=== PATIENT | female | born 1945 | race Caucasian/White ===

== ENCOUNTER 2016-09-25 19:46 | Emergency (ER) | payer MEDICARE, OTHER ==
[2016-09-25 21:26] LABS: Hematocrit 39 % (35-47); Hemoglobin 12.9 g/dl (12.0-16.0); Mean Corpuscular HGB Conc 33 g/dl (31-36); Mean Corpuscular Hemoglobin 29 pg (27-31); Mean Corpuscular Volume 87 fL (80-97); Mean Platelet Volume 9 um3 (7.4-10.4); Red Blood Count 4.51 10^6/ul (4.0-5.4); Red Cell Distribution Width 13 % (10.5-15); White Blood Count 6.8 10^3/ul (3.5-10.8)
[2016-09-25 21:43] LABS: Albumin 3.8 g/dL (3.2-5.2); Calcium 8.8 mg/dL (8.6-10.3); EGFR African American 106.4 (>60); EGFR Non-African American 82.7 (>60); Globulin 2.5 g/dL (2-4); Potassium 3.2 mmol/L (3.5-5.0); Total Bilirubin 0.6 mg/dL (0.2-1.0); Total Protein 6.3 g/dL (6.4-8.9)
[2016-09-25] MEDS ORDERED: Potassium Chlor TAB* 20 MEQ TAB.ER PO ONE (21:55)
--- NOTE | 2016-09-25 21:59 | ED ---
Nagi Quintero Alok, scribed for Starr Watson MD on 09/25/16 at 2137 . Palpitations / Dysrhythmia - HPI Summary HPI Summary: 71F presents to the ED with cardiac dysrhythmia intermittently for the past 5 days. Pt states her palpitations have worsened since 1800 this evening and are now constant. Pt notes slight nausea. Pt denies CP or SOB. Pt denies recent cough. Pt drinks ETOH daily. - History of Current Complaint Chief Complaint: EDDysrhythmPalp Time Seen by Provider: 09/25/16 20:19 Hx Obtained From: Patient Onset/Duration: Lasting Days, Worse Since - 1800 this evening Timing: Constant - since this evening Severity Initially: Moderate Severity Currently: Moderate Character: Irregular Aggravating: Nothing Alleviating: Nothing Associated Signs & Symptoms: Nausea - Allergy/Home Medications Allergies/Adverse Reactions: Allergies Allergy/AdvReac Type Severity Reaction Status Date / Time Bee Pollen Allergy See Comment Verified 09/25/16 19:53 bee Allergy See Comment Uncoded 09/25/16 19:53 PMH/Surg Hx/FS Hx/Imm Hx Endocrine/Hematology History: Denies: Hx Diabetes Cardiovascular History: Denies: Hx Hypertension, Hx Pacemaker/ICD Musculoskeletal History: Reports: Hx Bursitis - RESOLVED RIGHT HIP Sensory History: Reports: Hx Contacts or Glasses - GLASSES Denies: Hx Hearing Aid Opthamlomology History: Reports: Hx Contacts or Glasses - GLASSES Neurological History: Reports: Other Neuro Impairments/Disorders - HX OF VIRAL MENNIGITIS- 10 YEARS AGO Psychiatric History: Denies: Hx Panic Disorder - Cancer History Hx Chemotherapy: No Hx Radiation Therapy: No - Surgical History Surgery Procedure, Year, and Place: Gallbladder,Appendectomy, tubal, repair left wrist fx Hx Anesthesia Reactions: Yes - NAUSEA WITH GENERAL Infectious Disease History: No Infectious Disease History: Denies: Traveled Outside the [place] in Last 30 Days - Family History Known Family History: Negative: Cardiac Disease - Social History Occupation: Retired Lives: With Family Alcohol Use: Daily Alcohol Amount: 1 glass wine Substance Use Type: Reports: None Smoking Status (MU): Never Smoked Tobacco Review of Systems Positive: Palpitations. Negative: Chest Pain Negative: Shortness Of Breath, Cough Positive: Nausea All Other Systems Reviewed And Are Negative: Yes Physical Exam Triage Information Reviewed: Yes Vital Signs On Initial Exam: Initial Vitals Temp Pulse Resp Pulse Ox 98.0 F 63 16 99 09/25/16 19:46 09/25/16 19:46 09/25/16 19:46 09/25/16 19:46 Vital Signs Reviewed: Yes Appearance: Positive: Well-Appearing, No Pain Distress Skin: Positive: Warm, Skin Color Reflects Adequate Perfusion, Dry Eyes: Positive: EOMI, DENILSON ENT: Positive: Pharynx normal, TMs normal Neck: Positive: Supple, Nontender Respiratory/Lung Sounds: Positive: Clear to Auscultation, Breath Sounds Present. Negative: Rales, Rhonchi, Wheezes Cardiovascular: Positive: RRR, Other - no gallop. Negative: Murmur, Rub Abdomen Description: Positive: Nontender, Soft, Other: - no rebound. Negative: Distended, Guarding Bowel Sounds: Positive: Present Musculoskeletal: Positive: Strength/ROM Intact. Negative: Edema Left, Edema Right Neurological: Positive: Sensory/Motor Intact, Alert, Oriented to Person Place, Time, CN Intact II-III Psychiatric: Positive: Affect/Mood Appropriate - Linda Coma Scale Coma Scale Total: 15 Diagnostics - Vital Signs Vital Signs Temp Pulse Resp BP Pulse Ox 09/25/16 20:38 97.8 F 60 18 116/70 98 09/25/16 20:34 61 09/25/16 20:30 59 15 116/70 95 09/25/16 20:20 16 09/25/16 20:19 115/73 09/25/16 19:46 98.0 F 63 16 99 - Laboratory Lab Results: Lab Results 09/25/16 09/25/16 09/25/16 Range/Units 21:20 21:20 21:20 WBC 6.8 (3.5-10.8) 10^3/ul RBC 4.51 (4.0-5.4) 10^6/ul Hgb 12.9 (12.0-16.0) g/dl Hct 39 (35-47) % MCV 87 (80-97) fL MCH 29 (27-31) pg MCHC 33 (31-36) g/dl RDW 13 (10.5-15) % Plt Count 142 L (150-450) 10^3/ul MPV 9 (7.4-10.4) um3 Neut % (Auto) 56.1 (38-83) % Lymph % (Auto) 36.0 (25-47) % [place] % (Auto) 5.7 (1-9) % Eos % (Auto) 1.2 (0-6) % Baso % (Auto) 1.0 (0-2) % Absolute Neuts (auto) 3.8 (1.5-7.7) 10^3/ul Absolute Lymphs (auto) 2.5 (1.0-4.8) 10^3/ul Absolute Monos (auto) 0.4 (0-0.8) 10^3/ul Absolute Eos (auto) 0.1 (0-0.6) 10^3/ul Absolute Basos (auto) 0.1 (0-0.2) 10^3/ul Absolute Nucleated RBC 0 10^3/ul Nucleated RBC % 0.1 Sodium 138 (133-145) mmol/L Potassium 3.2 L (3.5-5.0) mmol/L Chloride 104 (101-111) mmol/L Carbon Dioxide 27 (22-32) mmol/L Anion Gap 7 (2-11) mmol/L BUN 21 (6-24) mg/dL Creatinine 0.70 (0.51-0.95) mg/dL Est GFR ( Amer) 106.4 (>60) Est GFR (Non-Af Amer) 82.7 (>60) BUN/Creatinine Ratio 30.0 H (8-20) Glucose 99 (70-100) mg/dL Lactic Acid 1.2 (0.5-2.0) mmol/L Calcium 8.8 (8.6-10.3) mg/dL Magnesium 2.0 (1.9-2.7) mg/dL Total Bilirubin 0.60 (0.2-1.0) mg/dL AST 18 (13-39) U/L ALT 13 (7-52) U/L Alkaline Phosphatase 50 (34-104) U/L Troponin I 0.00 (<0.04) ng/mL Total Protein 6.3 L (6.4-8.9) g/dL Albumin 3.8 (3.2-5.2) g/dL Globulin 2.5 (2-4) g/dL Albumin/Globulin Ratio 1.5 (1-3) Result Diagrams: 09/25/16 21:20 09/25/16 21:20 Lab Statement: Any lab studies that have been ordered have been reviewed, and results considered in the medical decision making process. 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 k is 3.2 repleted with 40meq k here plus 40 meq to be taken at home, mag is normal. Pt will eat a potassium rich diet at home. It was offered to rule pt out for mi but pt is very reliable and is clear that her symptoms are only palpitations and she declined the offer - Diagnoses Provider Diagnoses: Hypokalemia, Palpitations Discharge - Discharge Plan Condition: Stable Disposition: HOME Patient Education Materials: Palpitations (ED), Hypokalemia (ED) Referrals: Barber Langford MD [Primary Care Provider] - The documentation as recorded by the Nagi jolley Alok accurately reflects the service I personally performed and the decisions made by me, Starr Watson MD.
[2016-09-25 22:24] VITALS: BP 112/71
== END 2016-09-25 22:22 | disposition home or self-care (01) ==
LOC: ED 19:46
DX: R00.2 Palpitations (principal); E87.6 Hypokalemia; R11.0 Nausea; R00.1 Bradycardia, unspecified; Z91.030 Bee allergy status; Z90.49 Acquired absence of other specified parts of digestive tract
CPT/HCPCS: 36415; 80053; 83605; 83735; 84484; 85025; 93005; 99283; A9270-GY

== ENCOUNTER 2016-10-22 13:51 | Emergency (ER) | payer MEDICARE, OTHER ==
[2016-10-22 15:37] LABS: Hematocrit 40 % (35-47); Hemoglobin 13.3 g/dl (12.0-16.0); Mean Corpuscular HGB Conc 33 g/dl (31-36); Mean Corpuscular Hemoglobin 29 pg (27-31); Mean Corpuscular Volume 88 fL (80-97); Mean Platelet Volume 9 um3 (7.4-10.4); Red Blood Count 4.54 10^6/ul (4.0-5.4); Red Cell Distribution Width 14 % (10.5-15); White Blood Count 6.6 10^3/ul (3.5-10.8)
[2016-10-22 15:50] LABS: Albumin 3.9 g/dL (3.2-5.2); BUN/Creatinine Ratio 27.5 (8-20); Calcium 9.1 mg/dL (8.6-10.3); EGFR African American 91.2 (>60); EGFR Non-African American 70.9 (>60); Magnesium 2.2 mg/dL (1.9-2.7); Potassium 4.1 mmol/L (3.5-5.0); Total Bilirubin 0.7 mg/dL (0.2-1.0); Total Protein 6.9 g/dL (6.4-8.9)
[2016-10-22 16:16] LABS: TSH (Thyroid Stimulating Horm) 2.97 mcIU/mL (0.34-5.60)
[2016-10-22 17:05] VITALS: BP 112/70
--- NOTE | 2016-10-22 22:09 | ED ---
Kusum Quintero SooYoung, scribed for Duke López MD on 10/22/16 at 1427 . Palpitations / Dysrhythmia - HPI Summary HPI Summary: A 71 y/o F presents to ED with c/o palpitations onset two days ago. 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 The intermittent episodes might go on for approx 2 hours each day. Associated sx: nausea, chest pressure, mild dizziness, just feeling "not right". She did hot yoga today and did not notice any problems during exercise. - History of Current Complaint Chief Complaint: EDDysrhythmPalp Time Seen by Provider: 10/22/16 14:18 Hx Obtained From: Patient Onset/Duration: Lasting Days, Still Present Severity Initially: Moderate Severity Currently: Moderate Character: Fast, Skipped Beats Associated Signs & Symptoms: Dizzy, Chest Pain - "pressure", Nausea - Allergy/Home Medications Allergies/Adverse Reactions: Allergies Allergy/AdvReac Type Severity Reaction Status Date / Time Bee Pollen Allergy See Comment Verified 09/25/16 19:53 bee Allergy See Comment Uncoded 09/25/16 19:53 PMH/Surg Hx/FS Hx/Imm Hx Previously Healthy: No Endocrine/Hematology History: Denies: Hx Diabetes Cardiovascular History: Denies: Hx Hypertension, Hx Pacemaker/ICD Musculoskeletal History: Reports: Hx Bursitis - RESOLVED RIGHT HIP Sensory History: Reports: Hx Contacts or Glasses - GLASSES Denies: Hx Hearing Aid Opthamlomology History: Reports: Hx Contacts or Glasses - GLASSES Neurological History: Reports: Other Neuro Impairments/Disorders - HX OF VIRAL MENNIGITIS- 10 YEARS AGO Psychiatric History: Denies: Hx Panic Disorder - Cancer History Hx Chemotherapy: No Hx Radiation Therapy: No - Surgical History Surgery Procedure, Year, and Place: Gallbladder,Appendectomy, tubal, repair left wrist fx Hx Anesthesia Reactions: Yes - NAUSEA WITH GENERAL Infectious Disease History: No Infectious Disease History: Denies: Traveled Outside the [place] in Last 30 Days - Family History Known Family History: Positive: Other - pos: anasthesia reaction Negative: Cardiac Disease - Social History Occupation: Retired Lives: With Family Alcohol Use: Daily Alcohol Amount: 1 glass wine Hx Substance Use: No Substance Use Type: Reports: None Hx Tobacco Use: No Smoking Status (MU): Never Smoked Tobacco Review of Systems Positive: Other - pos: "not feeling right" Positive: Palpitations, Chest Pain - "pressure" Positive: Nausea Neurological: Other - pos: mild dizziness All Other Systems Reviewed And Are Negative: Yes Physical Exam Triage Information Reviewed: Yes Vital Signs On Initial Exam: Initial Vitals Temp Pulse Resp BP Pulse Ox 97.6 F 62 17 121/93 98 10/22/16 13:52 10/22/16 13:52 10/22/16 13:52 10/22/16 13:52 10/22/16 13:52 Vital Signs Reviewed: Yes Appearance: Positive: Well-Appearing, No Pain Distress Skin: Positive: Warm, Skin Color Reflects Adequate Perfusion, Dry Head/Face: Positive: Normal Head/Face Inspection Eyes: Positive: Normal ENT: Positive: Normal ENT inspection Neck: Positive: Supple, Nontender Respiratory/Lung Sounds: Positive: Clear to Auscultation, Breath Sounds Present Cardiovascular: Positive: RRR Abdomen Description: Positive: Nontender, Soft Bowel Sounds: Positive: Present Musculoskeletal: Positive: Normal Neurological: Positive: Normal Psychiatric: Positive: Normal, Affect/Mood Appropriate Diagnostics - Vital Signs Vital Signs Temp Pulse Resp BP Pulse Ox 10/22/16 13:52 97.6 F 62 17 121/93 98 - Laboratory Lab Results: Lab Results 10/22/16 10/22/16 10/22/16 Range/Units 15:19 15:19 15:19 WBC 6.6 (3.5-10.8) 10^3/ul RBC 4.54 (4.0-5.4) 10^6/ul Hgb 13.3 (12.0-16.0) g/dl Hct 40 (35-47) % MCV 88 (80-97) fL MCH 29 (27-31) pg MCHC 33 (31-36) g/dl RDW 14 (10.5-15) % Plt Count 126 L (150-450) 10^3/ul MPV 9 (7.4-10.4) um3 Neut % (Auto) 62.0 (38-83) % Lymph % (Auto) 30.2 (25-47) % [place] % (Auto) 6.1 (1-9) % Eos % (Auto) 1.0 (0-6) % Baso % (Auto) 0.7 (0-2) % Absolute Neuts (auto) 4.1 (1.5-7.7) 10^3/ul Absolute Lymphs (auto) 2.0 (1.0-4.8) 10^3/ul Absolute Monos (auto) 0.4 (0-0.8) 10^3/ul Absolute Eos (auto) 0.1 (0-0.6) 10^3/ul Absolute Basos (auto) 0 (0-0.2) 10^3/ul Absolute Nucleated RBC 0 10^3/ul Nucleated RBC % 0 Sodium 137 (133-145) mmol/L Potassium 4.1 (3.5-5.0) mmol/L Chloride 104 (101-111) mmol/L Carbon Dioxide 27 (22-32) mmol/L Anion Gap 6 (2-11) mmol/L BUN 22 (6-24) mg/dL Creatinine 0.80 (0.51-0.95) mg/dL Est GFR ( Amer) 91.2 (>60) Est GFR (Non-Af Amer) 70.9 (>60) BUN/Creatinine Ratio 27.5 H (8-20) Glucose 80 (70-100) mg/dL Lactic Acid 0.7 (0.5-2.0) mmol/L Calcium 9.1 (8.6-10.3) mg/dL Magnesium 2.2 (1.9-2.7) mg/dL Total Bilirubin 0.70 (0.2-1.0) mg/dL AST 27 (13-39) U/L ALT 24 (7-52) U/L Alkaline Phosphatase 60 (34-104) U/L Troponin I 0.00 (<0.04) ng/mL Total Protein 6.9 (6.4-8.9) g/dL Albumin 3.9 (3.2-5.2) g/dL Globulin 3.0 (2-4) g/dL Albumin/Globulin Ratio 1.3 (1-3) TSH 2.97 (0.34-5.60) mcIU/mL Result Diagrams: 10/22/16 15:19 10/22/16 15:19 Lab Statement: Any lab studies that have been ordered have been reviewed, and results considered in the medical decision making process. - EKG 1 EKG Rhythm: Sinus Bradycardia Re-Evaluation - Re-Evaluation 1 Re-Evaluation Time: 16:30 Change: Unchanged Comment: Discussing results with pt. Pt notes still feeling palpitations. Course/Dx - Course Course Of Treatment: Ms. Ricks presented C/O frequent palpations today and feeling lightheaded once during them. She feels fine here and was watched on the monitor with infrequent PAC's. Her W/U was negative. She will need cardiology F/U. - Diagnoses Provider Diagnoses: Palpitations - Physician Notifications Discussed Care Of Patient With: Thanh Torres - cardio Time Discussed With Above Provider: 16:50 Instructed by Provider To: Have Pt Call For Appt. Discharge - Discharge Plan Condition: Stable Disposition: HOME Patient Education Materials: Palpitations (ED) Referrals: Barber Langford MD [Primary Care Provider] - 1 Week Thanh Torres MD [Medical Doctor] - 1 Week Additional Instructions: Follow up with your primary care provider as well as Dr. Torres, cardiology, within the week. Please return to the ED if you experience new or worsening symptoms. The documentation as recorded by the Kusum jolley SooYoung accurately reflects the service I personally performed and the decisions made by me, Duke López MD.
== END 2016-10-22 17:04 | disposition home or self-care (01) ==
LOC: ED 13:51
DX: R00.2 Palpitations (principal)
CPT/HCPCS: 36415; 80053; 83605; 83735; 84443; 84484; 85025; 93005; 99282

== ENCOUNTER 2017-12-19 13:29 | Observation (INO) | payer MEDICARE, OTHER ==
[2017-12-19] MEDS ORDERED: NS 0.9% 1000 ML* 1,000 ML IV SCH (14:00)
--- NOTE | 2017-12-19 14:09 | RAD ---
Indication: New onset confusion since 1120 hours. Comparison: No relevant prior exams available on the [facility] PACS for comparison. Technique: Noncontrast CT vertex of skull through foramen magnum. Report: Mild prominence of the cerebral sulci and cerebellar fissures reflecting involutional change. Unremarkable ventricles and basal cisterns. Negative for berman matter white matter obscuration, intra or extra-axial hemorrhage, or mass effect. Unremarkable orbital contents. No suspicious abnormality of the calvarium or skull base evident. Clear partially visualized paranasal sinuses and mastoid air spaces. Unremarkable scalp. IMPRESSION: #. No acute intracranial process evident. #. Mild involutional change. #. Results discussed with Dr. Mata 12/19/2017 2:04 PM EDT
[2017-12-19 14:14] LABS: Urine Appearance Clear; Urine Blood 2+ (Negative); Urine Color Straw; Urine Ketones Negative (Negative); Urine Protein Negative (Negative); Urine Red Blood Cell Trace(0-2/hpf) (Absent); Urine Specific Gravity 1.008 (1.010-1.030); Urine Urobilinogen Negative (Negative); Urine White Blood Cell Trace(0-5/hpf) (Absent)
[2017-12-19 14:18] LABS: ABS Basophils 0.1 10^3/ul (0-0.2); ABS Eosinophils 0 10^3/ul (0-0.6); ABS Lymphocytes 1.8 10^3/ul (1.0-4.8); ABS Monocytes 0.4 10^3/ul (0-0.8); ABS Neutrophils 5.2 10^3/ul (1.5-7.7); ABS Nucleated RBC 0 10^3/ul; Eosinophil % 0.6 % (0-6); Hematocrit 43 % (35-47); Lymphocyte % 23.6 % (25-47); Mean Corpuscular HGB Conc 35 g/dl (31-36); Mean Corpuscular Hemoglobin 30 pg (27-31); Mean Corpuscular Volume 87 fL (80-97); Mean Platelet Volume 8.5 um3 (7.4-10.4); Nucleated Red Blood Cells % 0.1; Platelet Count 184 10^3/ul (150-450); Red Blood Count 4.94 10^6/ul (4.00-5.40); Red Cell Distribution Width 14 % (10.5-15); White Blood Count 7.5 10^3/ul (3.5-10.8)
--- NOTE | 2017-12-19 14:31 | ED ---
Neurological HPI - HPI Summary HPI Summary: LEVEL 5 CAVEAT: Unable to obtain complete HPI due to AMS The pt is a 72 y/o female with a PMHX of A fib [facility] [place] [facility] [place]/o sudden onset confusion since 11:30 today. The pt attended her 1.5 hour Fredi yoga (conducted under high temperatures ) at 09:00 today morning. As per her , the pt looked fine before that. She could drive herself to and from the class. The sx started after the class. He reports loss of memory and confusion. For example, the pt could not remember the date , age and recent actions such as opening a package that was delivered yesterday to her. She has been taking the yoga class for 10 years without any challenges. - History of Current Complaint Chief Complaint: EDAltMentalStatus Stated Complaint: CONFUSION Time Seen by Provider: 12/19/17 13:38 Hx Obtained From: Patient, Family/Front End Developer - Hx From Patient Unobtainable Due To: Altered Mental Status Onset/Duration: Sudden Onset - 11:30 today, Still Present Number of Seizures: 0 Pain Intensity: 0 Pain Scale Used: 0-10 Numeric Character: Confusion, Other: - Memory loss Number of Episodes: 0 - Allergy/Home Medications Allergies/Adverse Reactions: Allergies Allergy/AdvReac Type Severity Reaction Status Date / Time bee venom protein (honey bee) Allergy Anaphylatic Verified 12/19/17 14:55 Shock Home Medications: Home Medications NK [No Home Medications Reported] 12/19/17 [History Confirmed 12/19/17] PMH/Surg Hx/FS Hx/Imm Hx Previously Healthy: No Endocrine/Hematology History: Denies: Hx Diabetes Cardiovascular History: Reports: Hx Atrial Fibrillation Denies: Hx Hypertension, Hx Pacemaker/ICD Musculoskeletal History: Reports: Hx Bursitis - RESOLVED RIGHT HIP Sensory History: Reports: Hx Contacts or Glasses - GLASSES Denies: Hx Hearing Aid Opthamlomology History: Reports: Hx Contacts or Glasses - GLASSES EENT History: Denies: Hx Deafness Neurological History: Reports: Other Neuro Impairments/Disorders - HX OF VIRAL MENNIGITIS- 10 YEARS AGO Psychiatric History: Denies: Hx Panic Disorder - Cancer History Cancer Type, Location and Year: None reported Hx Chemotherapy: No Hx Radiation Therapy: No - Surgical History Surgery Procedure, Year, and Place: Gallbladder,Appendectomy, tubal, repair left wrist fx Hx Anesthesia Reactions: Yes - NAUSEA WITH GENERAL Infectious Disease History: No Infectious Disease History: Denies: Traveled Outside the [place] in Last 30 Days - Family History Known Family History: Positive: Other - pos: anasthesia reaction Negative: Cardiac Disease - Social History Occupation: Retired Lives: With Family Alcohol Use: Daily Alcohol Amount: 1 glass wine Hx Substance Use: No Substance Use Type: Reports: None Hx Tobacco Use: No Smoking Status (MU): Never Smoked Tobacco - Additional Comments History Additional Comments: LEVEL 5 CAVEAT: Unable to obtain complete PMH due to AMS Review of Systems - ROS Summary Review of Systems Summary: LEVEL 5 CAVEAT: Unable to obtain complete ROS due to AMS Constitutional: Other - Positive: confusion Negative: Fever Neurological: Other - Positive: memory loss All Other Systems Reviewed And Are Negative: Yes Physical Exam - Summary Physical Exam Summary: Appearance: Well appearing, no pain distress Skin: warm, dry, reflects adequate perfusion Head/face: normal Eyes: EOMI, DENILSON ENT: normal Neck: supple, non-tender Respiratory: CTA, breath sounds present Cardiovascular: RRR, pulses symmetrical Abdomen: non-tender, soft Bowel: present Musculoskeletal: normal, strength/ROM intact Neuro: normal, sensory motor intact, confused GCS:15 NIH scale: 1 Triage Information Reviewed: Yes Vital Signs On Initial Exam: Initial Vitals Temp Pulse Resp BP Pulse Ox 97.2 F 75 18 142/88 98 12/19/17 13:32 12/19/17 13:32 12/19/17 13:32 12/19/17 13:32 12/19/17 13:32 Vital Signs Reviewed: Yes Diagnostics - Vital Signs Vital Signs Temp Pulse Resp BP Pulse Ox 12/19/17 14:19 66 21 146/101 99 12/19/17 14:02 63 10 97 12/19/17 13:42 68 20 153/97 98 12/19/17 13:32 97.2 F 75 18 142/88 98 - Laboratory Lab Results: Lab Results 12/19/17 12/19/17 Range/Units 14:02 14:03 WBC 7.5 (3.5-10.8) 10^3/ul RBC 4.94 (4.00-5.40) 10^6/ul Hgb 15.0 (12.0-16.0) g/dl Hct 43 (35-47) % MCV 87 (80-97) fL MCH 30 (27-31) pg MCHC 35 (31-36) g/dl RDW 14 (10.5-15) % Plt Count 184 (150-450) 10^3/ul MPV 8.5 (7.4-10.4) um3 Neut % (Auto) 69.5 (38-83) % Lymph % (Auto) 23.6 L (25-47) % [place] % (Auto) 5.6 (0-7) % Eos % (Auto) 0.6 (0-6) % Baso % (Auto) 0.7 (0-2) % Absolute Neuts (auto) 5.2 (1.5-7.7) 10^3/ul Absolute Lymphs (auto) 1.8 (1.0-4.8) 10^3/ul Absolute Monos (auto) 0.4 (0-0.8) 10^3/ul Absolute Eos (auto) 0 (0-0.6) 10^3/ul Absolute Basos (auto) 0.1 (0-0.2) 10^3/ul Absolute Nucleated RBC 0 10^3/ul Nucleated RBC % 0.1 Urine Color Straw Urine Appearance Clear Urine pH 5.0 (5-9) Ur Specific [place] 1.008 L (1.010-1.030) Urine Protein Negative (Negative) Urine Ketones Negative (Negative) Urine Blood 2+ A (Negative) Urine Nitrate Negative (Negative) Urine Bilirubin Negative (Negative) Urine Urobilinogen Negative (Negative) Ur Leukocyte Esterase Negative (Negative) Urine WBC (Auto) Trace(0-5/hpf) (Absent) Urine RBC (Auto) Trace(0-2/hpf) (Absent) Urine Bacteria Absent (Absent) Urine Glucose Negative (Negative) Result Diagrams: 12/19/17 14:03 12/19/17 14:03 Lab Statement: Any lab studies that have been ordered have been reviewed, and results considered in the medical decision making process. - Radiology Brain MRI Radiology Interpretation Completed By: Radiologist - IMPRESSION: #. No evidence for acute or subacute ischemia or intracranial hemorrhage. #. No acute intracranial process evident. #. Tiny focus of hemosiderin deposition at the LEFT frontal lobe white matter which may reflect a cavernous angioma or punctate remote prior hemorrhage site. The ED physician reviewed this radiology report. - CT Brain CT CT Interpretation Completed By: Radiologist - IMPRESSION: #. No acute intracranial process evident. #. Mild involutional change. The ED physician reviewed this radiology report. 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: Both Correctly Best Gaze (Only Horizontal Eye Movement): Normal Visual Field Testing: No Visual Loss Facial Paresis-Pt to Smile & Close Eyes or Grimace Symmetry: Normal/Symmetrical Motor Function - Right Arm: No Drift-Holds 10 Seconds Motor Function - Left Arm: No Drift-Holds 10 Seconds Motor Function - Right Leg: No Drift-Holds 10 Seconds Motor Function - Left Leg: No Drift-Holds 10 Seconds Limb Ataxia-Must be out of Proportion to Weakness Present: Absent Sensory (Use Pinprick to Test Arms/Legs/Trunk/Face): Normal Best Language (Describe Picture, Name Items): No Aphasia Dysarthria (Read Several Words): Normal Extinction and Inattention: No Abnormality Total Score: 1 Course/Dx - Course Course Of Treatment: A 72 year-old F presents to the ED with a CC of sudden onset confusion since 11:30 today. The pt attended her 1.5 hour Fredi yoga ( conducted under high temperatures) at 09:00 today morning. As per her , the pt looked fine before that. She could drive herself to and from the class. The sx started after the class. He reports loss of memory and confusion. For example, the pt could not remember the date, age and recent actions such as opening a package that was delivered yesterday to her. A physical exam revealed confusion. A brain CT reveals mild involutional change but is negative for any acute intracranial processes. An EKG is unremarkable.A brain MRI reveals a tiny focus of hemosiderin deposition at the LEFT frontal lobe white matter In the ED course, the pt was given N.s 0.9% 1000mL IV, Acetaminophen 650mg PO, and Oxygen therapy which improved the symptoms. I discussed the care of the pt with Dr. Berny Norwood MD (neurologist) who agreed to see the pt in the ED. I also consulted Dr. Coe from the [facility]. He recommended doing an MRI and EEG. At 15:30, Dr. Sakina Love (Hospitalist) recommended waiting for the MRI results before considering admission. Dr. Love agreed to admit the pt. The patient will be admitted with a final Dx of TIA, and TGA. She is agreeable with this plan. Allergies noted. - Differential Dx Differential Diagnoses Neuro: Positive: Cerebrovascular Accident, Hemorrhage, Intracranial Bleed, Transient Ischemic Attack - Diagnoses Provider Diagnoses: TIA (transient ischemic attack), TGA (transient global amnesia) - Physician Notifications Discussed Care Of Patient With: Berny Norwood - Nuerologist Time Discussed With Above Provider: 14:05 Instructed by Provider To: MD Will See In ED - Critical Care Time Critical Care Time: 75-104 min Discharge - Sign-Out/Discharge Documenting (check all that apply): Patient Departure - Admit All imaging exams completed and their final reports reviewed: Yes - Discharge Plan Condition: Improved Disposition: ADMITTED TO [facility] - Billing Disposition and Condition Condition: IMPROVED Disposition: Admitted to [facility] - Attestation Statements Document Initiated by Jessiee: Yes Documenting Scribe: Kathryn Jefferson Provider For Whom Amrit is Documenting (Include Credential): Clemente Sargent MD Scribe Attestation: Kathryn Quintero , jessieed for Clemente Sargent MD on 12/19/17 at 1803. Scribe Documentation Reviewed: Yes Provider Attestation: The documentation as recorded by the Kathryn jolley accurately reflects the service I personally performed and the decisions made by Dr alvarez Emmanuel Bapana, MD Consult Consult: 14:49 : Discussed the care of the pt with Dr. Coe from the [facility]. He recommended doing an MRI and EEG. 15:00: Discussed the care of the pt with Dr Ivan Presley DO (Hospitalist) about admission. She recommended waiting for the MRI results first. 16:39- Dr. Love agrred to admit the pt. MRI results are still pending
[2017-12-19 14:38] LABS: EGFR Non-African American 55.9 (>60)
[2017-12-19 14:41] LABS: INR 0.94 (0.77-1.02)
--- NOTE | 2017-12-19 16:40 | RAD ---
Indication: Confusion. Stroke workup. Comparison: Noncontrast CT of the same date. Technique: [employer] 1.5 Vida CM278A with GEM suite. MRI brain without contrast. Report: Artifact from dental amalgam. Diffusion series is negative for acute or subacute ischemia. Susceptibility series is remarkable for a tiny focus of hemosiderin deposition at the LEFT frontal lobe white matter which may reflect a cavernous angioma or punctate prior hemorrhage site. No evidence for acute or subacute intra-axial or extra-axial hemorrhage. Solitary 3 mm focal region of increased T2 signal in the subcortical white matter of the LEFT frontal lobe at the level of the centrum semiovale of doubtful clinical significance. Negative for mass effect. Small normal variant mildly prominent perivascular spaces at the basal ganglia and temporal lobes. Patterns of signal intensity throughout the cerebrum and posterior fossa are otherwise normal. Unremarkable cerebral sulci, ventricles, and basal cisterns. Preserved major intracranial flow-voids. Unremarkable symmetric appearance of the internal auditory canals and membranous labyrinths. Unremarkable orbital contents. No suspicious calvarial or skull base lesions evident. Grossly clear paranasal sinuses and mastoid air spaces. Negative for scalp hematoma. IMPRESSION: #. No evidence for acute or subacute ischemia or intracranial hemorrhage. #. No acute intracranial process evident. #. Tiny focus of hemosiderin deposition at the LEFT frontal lobe white matter which may reflect a cavernous angioma or punctate remote prior hemorrhage site.
[2017-12-19] MEDS ORDERED: Acetaminophen TAB* 325 MG PO PRN (16:44)
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
[2017-12-20 07:35] VITALS: BP 115/65
--- NOTE | 2017-12-20 14:48 | CONS ---
CONSULTATION REPORT: DATE OF CONSULT: 12/20/17 PATIENT OF: Dr. Love and Dr. Langford. HISTORY OF PRESENT ILLNESS: This is a 72-year-old woman who went to [facility] from about 9:30 to 11:20 and drove home where she was seen by her initially feeling worn out and then began acting quite confused. Then, the ER doctor called me yesterday shortly after 11:30 and I asked if there was any short-term memory problem, he told me that memory was absolutely fine and that she was just acutely confused and I recommended that he contact [facility] for a telestroke evaluation. He could not tell me over the phone whether she was aphasic. However, his history I think was incorrect based on what the and also Dr. Love told me that her speech was fine, she could speak in sentences, but that she had acute short-term memory loss. She could not remember for instance that the had a heart attack and she could not remember what she had done the morning of admission. She did not know what day it was. This lasted hours and then cleared up. PAST MEDICAL HISTORY: She has had no past medical history. PAST SURGICAL HISTORY: She has had jaw surgery, appendectomy, cholecystectomy, left wrist surgery. MEDICATIONS: She is on no medicines. ALLERGIES: No known drug allergies. FAMILY HISTORY: The mother at 90 of a heart condition and father at 70 of Alzheimer's. SOCIAL HISTORY: She does not smoke. She drinks 1 alcoholic beverage a day. 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 REVIEW OF SYSTEMS: Negative in all 14 spheres other than in the HPI. She does have cardiac arrhythmia with bradycardia and tachycardia, but it is not AFib, although the ER note mentions that she has atrial fibrillation. PHYSICAL EXAM: Temperature 97.6, pulse 50, respirations 12, blood pressure 115/ 65. She is alert and oriented with normal speech and comprehension. Cranial nerves II through XII are intact. Fundi showed sharp disc. Memory was 3/3. In conversation, she clearly was stable and had no memory problems. Motor exam revealed normal tone, strength, [id number]. No pronator drift. Chest: Clear. Cardiovascular: Regular rate, rhythm. Abdomen is soft with positive bowel sounds. DIAGNOSTIC STUDIES/LAB DATA: Her EEG showed no clear-cut epileptiform potentials. There were some sharply contoured activity in her left frontotemporal head region, but there was no clear-cut epileptiform potentials. There was a small focus of hemosiderin on her MRI scan of the left frontal lobe white matter. Her head CT scan was reviewed and was negative. Her labs include normal CMP other than a BUN of 27, creatinine 0.98; normal INR , PTT; CBC, which was normal and a UA that was normal. ASSESSMENT AND PLAN: Maria Esther most likely had transient global amnesia. She was not in any potential stress she notes to me and most likely this may have represented transient ischemia. She should be on a baby aspirin. She should have carotid Dopplers done and perhaps an LDL done. This could be done as an outpatient and I can follow, please schedule followup with me. She has had no history of staring spells and usually transient global amnesia is a single thing and I would not treat with anticonvulsants at this time either. Thank you for sharing her case. [id number]/[facility] #: [id number] JHOANA
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
--- NOTE | 2017-12-20 23:22 | DS ---
CC: Dr. Langford; Dr. Norwood. * DISCHARGE SUMMARY: DATE OF ADMISSION: 12/19/17. DATE OF DISCHARGE: 12/20/17. PRIMARY CARE PROVIDER: Dr. Langford. NEUROLOGIST: Dr. Norwood. PRINCIPAL DIAGNOSIS: Transient global amnesia. SECONDARY DIAGNOSIS: None. DISCHARGE MEDICATIONS: Aspirin 81 mg p.o. daily. HOSPITAL COURSE: Ms. Ricks is a 72-year-old female, who had been in her usual state of health when she went to hot yoga on the day of admission. Subsequently, driving home and her identifying her to be with memory loss. He ultimately brought her to the emergency room where she had a consultation with stroke neurologist from [facility]. Per the stroke neurologist , there is a concern that this represented transient global amnesia; however, an MRI was recommended. The patient underwent MRI, which is negative for acute ischemia. Ultimately, it was felt after this test being negative, her symptoms were truly likely secondary transient global amnesia. The patient did have an EEG performed which by report from Dr. Norwood did reveal some sharp waves, but no clear evidence for epileptiform discharges. Dr. Norwood saw the patient in consultation on 12/20/17 and agreed with a diagnosis of transient global amnesia , felt this is most likely may have represented transient ischemia. It is recommended to start a baby aspirin. Additionally, it is recommended the patient have carotid Dopplers performed as well as a lipid profile as an outpatient. The patient should follow up with Dr. Norwood in 2 to 4 weeks after the carotid Dopplers and lipid panel are completed. The patient's has been instructed to monitor for any staring spells given the abnormal EEG; however, at this point, he has not recommended initiating an anticonvulsant. On the day of discharge, the patient is awake, alert, and oriented, sitting up in bed, in no acute distress. Her cardiac exam reveals a normal S1, S2 with a regular rate and rhythm. Her lungs are clear. Her abdomen is soft, nontender, and nondistended. Her memory is intact. She states that she remembers going to yoga on the day prior to admission and the next thing she remembers is getting hooked up to EEG later in the afternoon. FOLLOWUP CONCERNS: The patient is being discharged home today, 12/20/17. Activity level is as tolerated. Diet is regular. Condition on discharge is stable. The patient is to follow up with Dr. Langford in the next 4 to 7 days. Again, she is to have carotid Dopplers and a lipid panel obtained as an outpatient in the next 1 to 2 weeks. She is to follow up with Dr. Norwood in 2 to 4 weeks. TIME SPENT: 28 minutes was spent discharging this patient. [id number]/[facility] #: [id number] MTDD
== END 2017-12-20 12:55 | disposition home or self-care (01) ==
LOC: ED 13:29 → MEDTELE 16:44
PROVIDERS: ADMIT Hospitalist; ATTEND Hospitalist
DX: G45.4 Transient global amnesia (principal); Z79.02 Long term (current) use of antithrombotics/antiplatelets; Z88.1 Allergy status to other antibiotic agents; I48.91 Unspecified atrial fibrillation
CPT/HCPCS: 36415; 70450; 70551; 80053; 81003; 81015; 84484; 85025; 85610; 85730; 87086; 93005; 95816; 96360; 96361; 99284; A9270-GY; G0378